=== PATIENT | male | born 1985 | race Caucasian/White ===

== ENCOUNTER 2016-11-04 18:24 | Emergency (ER) | payer SELFPAY ==
[~2016-11-04] VITALS: Ht 177.8 cm; Wt 77.7 kg
[~2016-11-04 18:24] MED LIST: AMOXICILLIN500 MG PO; BACTRIM DS1 TAB PO; FIORICET PO; GENTASOL0.3 % OU; IMITREX50 M1 PO; KEFLEX500 MG PO; MOTRIN800 MG PO; MUCINEX D1 TAB PO; NO; NO HOME MEDS; PERCOCET 5/325M1 TAB PO; TYLENOL # 31 TA1 PO; ULTRAM50 M1 PO; ZEBUTAL 50-325-1 CAP PO
[2016-11-04] MEDS ORDERED: LORTAB 10-325 M1 TAB PO (20:04)
[2016-11-04 20:45] VITALS: BP 129/74
== END 2016-11-04 20:45 | disposition home or self-care (01) | DRG 552 ==
LOC: ED 18:24
DX: S16.1XXA Strain of muscle, fascia and tendon at neck level, initial encounter (principal); S09.90XA Unspecified injury of head, initial encounter; S42.021A Displaced fracture of shaft of right clavicle, initial encounter for closed fracture; V86.49XA Person injured while boarding or alighting from other special all-terrain or other off-road motor vehicle, initial encounter; Y92.414 Local residential or business street as the place of occurrence of the external cause; Y93.I9 Activity, other involving external motion